=== PATIENT | male | born 1975 | race Hispanic/Latino ===

== ENCOUNTER 2019-04-02 22:49 | Emergency (ER) | payer SELFPAY ==
[2019-04-02 23:19] LABS: Absolute Lymphocytes (CBC) 2.9 K/uL (0.7-4.9); Basophils % 0.4 % (0-1.3); Hematocrit 39.2 % (39.6-49.0); MPV 8.4 fL (7.6-11.3); RBC Red Blood Cell Count 4.44 M/uL (4.33-5.43)
[2019-04-02] MEDS ORDERED: KETOROLAC 30 MG/ML INJ ONE (23:21)
[2019-04-02] MEDS ORDERED: NA CHLORIDE 0.9% 1,000 ML ONE (23:22)
[2019-04-02 23:25] LABS: Urine Blood TRACE (NEG); Urine Glucose TRACE (NEG); Urine Protein NEGATIVE (NEG); Urine Specific Gravity 1.015 (1.005-1.030); Urine pH 8.5 (5.0-7.0)
[2019-04-02 23:36] LABS: Potassium 3.2 mmol/L (3.5-5.1)
[2019-04-03] MEDS ORDERED: MORPHINE 4 MG/ML SYR ONE (00:05)
--- NOTE | 2019-04-03 02:09 | ER ---
Nurse's Notes [facility] Name: Sohan Joy Age: 43 yrs Sex: Male : 1975 Arrival Date: 04/02/2019 Time: 22:50 Bed 14 Private MD: Diagnosis: Flank Pain Presentation: 04/02 22:52 Presenting complaint: EMS states: PT was having dinner at 2145, stood up and had sudden jb4 left lower back pain, described it as a pressure that makes his left leg feel weak. Transition of care: patient was not received from another setting of care. Onset of symptoms was April 02, 2019. Risk Assessment: Do you want to hurt yourself or someone else? Patient reports no desire to harm self or others. Initial Sepsis Screen: Does the patient meet any 2 criteria? RR > 20 per min. Yes Does the patient have a suspected source of infection? No. Patient's initial sepsis screen is negative. Care prior to arrival: None. 22:52 Method Of Arrival: EMS: [facility] jb4 22:52 Acuity: CARLOS 3 jb4 Historical: - Allergies: 22:54 No Known Allergies; jb4 - Home Meds: 22:54 None [Active]; jb4 - PMHx: 22:54 Kidney stones; jb4 - PSHx: 22:54 None; jb4 - Immunization history:: Adult Immunizations unknown. - Social history:: Smoking status: Patient/guardian denies using tobacco, Patient uses alcohol, occasionally. - Ebola Screening: : No symptoms or risks identified at this time. Screenin:02 Abuse screen: Denies threats or abuse. Nutritional screening: No deficits noted. jb4 Tuberculosis screening: No symptoms or risk factors identified. Fall Risk IV access (20 points). Total Moore Fall Scale indicates No Risk (0-24 pts). Assessment: 22:59 General: Appears in no apparent distress. uncomfortable, Behavior is calm, cooperative, jb4 appropriate for age. Pain: Complains of pain in left low back Pain radiates to abdomen Pain currently is 10 out of 10 on a pain scale. Quality of pain is described as pressure. Neuro: Level of Consciousness is awake, alert, obeys commands, Oriented to person, place, time, situation. Cardiovascular: Patient's skin is warm and dry. Respiratory: Airway is patent Respiratory effort is even, unlabored, Respiratory pattern is regular, symmetrical. GI: No signs and/or symptoms were reported involving the gastrointestinal system. : No signs and/or symptoms were reported regarding the genitourinary system. EENT: No signs and/or symptoms were reported regarding the EENT system. Derm: Skin is intact, Skin is dry, Skin is normal, Skin temperature is warm. Musculoskeletal: Circulation, motion, and sensation intact. Range of motion: intact in all extremities. 04/03 00:25 Reassessment: Patient appears in no apparent distress at this time. Patient and/or jb4 family updated on plan of care and expected duration. Pain level reassessed. Patient is alert, oriented x 3, equal unlabored respirations, skin warm/dry/pink. Pt reports decreased pain level after having Morphine and appears more comfortable Patient states feeling better. 01:30 Reassessment: Patient appears in no apparent distress at this time. Patient and/or jb4 family updated on plan of care and expected duration. Pain level reassessed. Patient is alert, oriented x 3, equal unlabored respirations, skin warm/dry/pink. Patient states feeling better. 02:19 Reassessment: Patient appears in no apparent distress at this time. Patient and/or jb4 family updated on plan of care and expected duration. Pain level reassessed. Patient is alert, oriented x 3, equal unlabored respirations, skin warm/dry/pink. PT ambulated out of ED with family, steady gait, verbalized feeling better, verbalized understanding of d/c and follow up instructions, denies questions or concerns. Vital Signs: 04/02 22:54 BP 133 / 75; Pulse 71; Resp 39; Temp 98.4(O); Pulse Ox 97% ; lt1 22:54 Weight 90.72 kg; Height 5 ft. 11 in. (180.34 cm) (R); jb4 04/03 00:15 BP 122 / 69; Pulse 66; Resp 20; Pulse Ox 97% on R/A; 4 01:30 BP 120 / 76; Pulse 64; Resp 16; Pulse Ox 97% on R/A; jb4 02:15 BP 121 / 71; Pulse 67; Resp 16; Pulse Ox 100% on R/A; jb4 04/02 22:54 Body Mass Index 27.89 (90.72 kg, 180.34 cm) jb4 ED Course: 04/02 22:50 Patient arrived in ED. jb4 22:50 Isabelle Cowart FNP-C [facility]. kb 22:50 Robbie Francis MD is Attending Physician. kb 22:54 Triage completed. jb4 22:54 Arm band placed on right wrist. jb4 23:02 Bed in low position. Call light in reach. Side rails up X 1. Pulse ox on. NIBP on. jb4 23:02 Initial lab(s) drawn, by me, sent to lab. Inserted saline lock: 20 gauge in right lt1 antecubital area, using aseptic technique. 23:20 Marlon Akins, RN is Primary Nurse. rv 23:26 Bean Spencer, CURRY is Primary Nurse. jb4 04/03 00:41 CT completed. Patient tolerated procedure well. Patient moved to CT via stretcher. Patient moved back from CT. 00:43 CT Stone Protocol In Process Unspecified. EDMS 02:21 No provider procedures requiring assistance completed. IV discontinued, intact, jb4 bleeding controlled, No redness/swelling at site. Pressure dressing applied. Administered Medications: 04/02 23:09 Not Given (Patient Refused): Zofran 4 mg IVP once; over 2 minutes jb4 23:09 Drug: NS 0.9% 1000 ml Route: IV; Rate: 1000 ml; Site: right antecubital; jb4 04/03 00:00 Follow up: Response: No adverse reaction; IV Status: Completed infusion; IV Intake: jb4 1000ml 04/02 23:09 Drug: TORadol - Ketorolac 15 mg Route: IVP; Site: right antecubital; jb4 23:45 Follow up: Response: No adverse reaction; Pain is unchanged, physician notified jb4 23:54 Drug: morphine 4 mg Route: IVP; Site: right antecubital; jb4 04/03 00:28 Follow up: Response: No adverse reaction; Pain is decreased jb4 Intake: 00:00 IV: 1000ml; Total: 1000ml. jb4 Outcome: 02:08 Discharge ordered by . kb 02:21 Discharged to home ambulatory, with family. jb4 02:21 Condition: stable 02:21 Discharge instructions given to patient, family, Instructed on discharge instructions, follow up and referral plans. medication usage, Demonstrated understanding of instructions, follow-up care, medications, Prescriptions given X 2. 02:22 Patient left the ED. jb4 Signatures: Dispatcher [employer] EDIsabelle Bhatt, JOHN CHAVEZ-Bryon Purcell James RN RN jb4 Marlon Akins RN RN [facility], [facility]
--- NOTE | 2019-04-03 02:10 | EDPHYS ---
Physician Documentation [facility] Name: Sohan Joy Age: 43 yrs Sex: Male : 1975 Arrival Date: 04/02/2019 Time: 22:50 Bed 14 Private MD: ED Physician Robbie Francis HPI: 04/02 23:44 This 43 yrs old Male presents to ER via EMS with complaints of flank pain. kb 23:44 The patient complains of pain in the right flank. The pain does not radiate. Onset: The kb symptoms/episode began/occurred just prior to arrival. Modifying factors: The symptoms are alleviated by nothing. the symptoms are aggravated by nothing. Associated signs and symptoms: The patient has no apparent associated signs or symptoms. Severity of pain: At its worst the pain was severe in the emergency department the pain is unchanged. The patient has experienced similar episodes in the past, a few times. The patient has not recently seen a physician. Pt reports sudden onset of right flank pain. Feels the same as kidney stones he had in the past. Historical: - Allergies: 22:54 No Known Allergies; jb4 - Home Meds: 22:54 None [Active]; jb4 - PMHx: 22:54 Kidney stones; jb4 - PSHx: 22:54 None; jb4 - Immunization history:: Adult Immunizations unknown. - Social history:: Smoking status: Patient/guardian denies using tobacco, Patient uses alcohol, occasionally. - Ebola Screening: : No symptoms or risks identified at this time. ROS: 23:44 Constitutional: Negative for fever, chills, and weight loss, ENT: Negative for injury, kb pain, and discharge, Neck: Negative for injury, pain, and swelling, Cardiovascular: Negative for chest pain, palpitations, and edema, Respiratory: Negative for shortness of breath, cough, wheezing, and pleuritic chest pain, Abdomen/GI: Negative for abdominal pain, nausea, vomiting, diarrhea, and constipation, MS/Extremity: Negative for injury and deformity, Skin: Negative for injury, rash, and discoloration, Neuro: Negative for headache, weakness, numbness, tingling, and seizure. 23:44 Back: Positive for flank pain, on the right. Exam: 23:44 Constitutional: This is a well developed, well nourished patient who is awake, alert, kb and in no acute distress. Head/Face: Normocephalic, atraumatic. ENT: Nares patent. No nasal discharge, no septal abnormalities noted. Tympanic membranes are normal and external auditory canals are clear. Oropharynx with no redness, swelling, or masses, exudates, or evidence of obstruction, uvula midline. Mucous membranes moist. Neck: Trachea midline, no thyromegaly or masses palpated, and no cervical lymphadenopathy. Supple, full range of motion without nuchal rigidity, or vertebral point tenderness. No Meningismus. Chest/axilla: Normal chest wall appearance and motion. Nontender with no deformity. No lesions are appreciated. Cardiovascular: Regular rate and rhythm with a normal S1 and S2. No gallops, murmurs, or rubs. Normal PMI, no JVD. No pulse deficits. Respiratory: Lungs have equal breath sounds bilaterally, clear to auscultation and percussion. No rales, rhonchi or wheezes noted. No increased work of breathing, no retractions or nasal flaring. Abdomen/GI: Soft, non-tender, with normal bowel sounds. No distension or tympany. No guarding or rebound. No evidence of tenderness throughout. Skin: Warm, dry with normal turgor. Normal color with no rashes, no lesions, and no evidence of cellulitis. MS/ Extremity: Pulses equal, no cyanosis. Neurovascular intact. Full, normal range of motion. Neuro: Awake and alert, GCS 15, oriented to person, place, time, and situation. Cranial nerves II-XII grossly intact. Motor strength 5/5 in all extremities. Sensory grossly intact. Cerebellar exam normal. Normal gait. 23:44 Back: CVA tenderness, that is moderate, is noted on the right. Vital Signs: 22:54 BP 133 / 75; Pulse 71; Resp 39; Temp 98.4(O); Pulse Ox 97% ; lt1 22:54 Weight 90.72 kg; Height 5 ft. 11 in. (180.34 cm) (R); jb4 04/03 00:15 BP 122 / 69; Pulse 66; Resp 20; Pulse Ox 97% on R/A; jb4 01:30 BP 120 / 76; Pulse 64; Resp 16; Pulse Ox 97% on R/A; jb4 02:15 BP 121 / 71; Pulse 67; Resp 16; Pulse Ox 100% on R/A; jb4 04/02 22:54 Body Mass Index 27.89 (90.72 kg, 180.34 cm) jb4 MDM: 04/02 22:50 Patient medically screened. kb 23:37 Data reviewed: vital signs, nurses notes. Data interpreted: Pulse oximetry: on room air kb is 97 %. Interpretation: normal. 04/03 02:07 Counseling: I had a detailed discussion with the patient and/or guardian regarding: the kb historical points, exam findings, and any diagnostic results supporting the discharge/admit diagnosis, lab results, radiology results, the need for outpatient follow up, a family practitioner, to return to the emergency department if symptoms worsen or persist or if there are any questions or concerns that arise at home. Response to treatment: the patient's symptoms have resolved after treatment. 04/02 22:52 Order name: CBC with Diff; Complete Time: 23:24 kb 04/02 22:52 Order name: Basic Metabolic Panel; Complete Time: 23:37 kb 04/02 22:52 Order name: CT Stone Protocol kb 04/02 23:22 Order name: Urine Dipstick--Ancillary (enter results); Complete Time: 23:27 cm6 04/02 22:52 Order name: IV Start; Complete Time: 23:03 kb 04/02 22:52 Order name: Urine Dipstick-Ancillary (obtain specimen); Complete Time: 23:26 kb Administered Medications: 04/02 23:09 Not Given (Patient Refused): Zofran 4 mg IVP once; over 2 minutes jb4 23:09 Drug: NS 0.9% 1000 ml Route: IV; Rate: 1000 ml; Site: right antecubital; jb4 04/03 00:00 Follow up: Response: No adverse reaction; IV Status: Completed infusion; IV Intake: jb4 1000ml 04/02 23:09 Drug: TORadol - Ketorolac 15 mg Route: IVP; Site: right antecubital; jb4 23:45 Follow up: Response: No adverse reaction; Pain is unchanged, physician notified jb4 23:54 Drug: morphine 4 mg Route: IVP; Site: right antecubital; jb4 04/03 00:28 Follow up: Response: No adverse reaction; Pain is decreased jb4 Disposition: 07:20 Co-signature as Attending Physician, Robbie Francis MD I agree with the assessment and perry plan of care. Disposition: 04/03/19 02:08 Discharged to Home. Impression: Flank Pain. - Condition is Stable. - Discharge Instructions: Flank Pain, [id number]. - Prescriptions for Zofran 4 mg Oral Tablet - take 1 tablet by ORAL route every 6 hours As needed; 20 tablet. Diclofenac Sodium 75 mg Oral Tablet, Delayed Release (E.C.) - take 1 tablet by ORAL route 2 times per day As needed; 30 tablet. - Medication Reconciliation Form, Thank You Letter, Antibiotic Education, Prescription Opioid Use form. - Follow up: Emergency Department; When: As needed; Reason: Worsening of condition. Follow up: Private Physician; When: 2 - 3 days; Reason: Recheck today's complaints, Continuance of care, Re-evaluation by your physician. Signatures: Dispatcher [employer] EDMS Isabelle Cowart, CAFETERIA DIRECTOR-C CAFETERIA DIRECTOR-Robbie Nuñez MD MD cha Bryson, James, RN RN jb4 Corrections: (The following items were deleted from the chart) 02:22 02:08 04/03/2019 02:08 Discharged to Home. Impression: Flank Pain. Condition is Stable. jb4 Forms are Medication Reconciliation Form, Thank You Letter, Antibiotic Education, Prescription Opioid Use. Follow up: Emergency Department; When: As needed; Reason: Worsening of condition. Follow up: Private Physician; When: 2 - 3 days; Reason: Recheck today's complaints, Continuance of care, Re-evaluation by your physician. kb
--- NOTE | 2019-04-03 09:53 | RAD REPORT ---
EXAM DESCRIPTION: CT - Stone Protocol - 04/03/2019 5:54 am CLINICAL HISTORY: The patient is 43 years old and is Male; FLANK PAIN TECHNIQUE: Axial computed tomography images of the abdomen and pelvis without intravenous contrast. Sagittal and coronal reformatted images were created and reviewed. This CT exam was performed usi ng one or more of the following dose reduction techniques: automated exposure control, adjustment o f the mA and/or kV according to patient size, and/or use of iterative reconstruction technique. COMPARISON: No relevant prior studies available. FINDINGS: LUNG BASES: Unremarkable. No mass. No consolidation. ABDOMEN: LIVER: Homogeneous without focal mass. GALLBLADDER AND BILE DUCTS: The gallbladder is contracted. Suggestion of punctate calcified gall stone is present. PANCREAS: Unremarkable. No ductal dilation. SPLEEN: Unremarkable. ADRENALS: Unremarkable. No mass. KIDNEYS AND URETERS: No obstructing renal or ureteral calculus is seen. There is no hydronephros is hydroureter of either kidney. STOMACH AND BOWEL: The stomach is significantly distended with food contents. The small bowel is normal in caliber. A moderate amount stool is present throughout the colon. There is no mucosal thic kening or evidence of bowel obstruction. PELVIS: APPENDIX: The appendix is normal in caliber without surrounding inflammation. BLADDER: The bladder is well distended. A calcification is noted at the dome of the bladder. No stones. REPRODUCTIVE: Unremarkable as visualized. ABDOMEN and PELVIS: INTRAPERITONEAL SPACE: Unremarkable. No free air. No significant fluid collection. BONES/JOINTS: No acute fracture. SOFT TISSUES: A small fat-containing umbilical hernia is present. VASCULATURE: Unremarkable. No abdominal aortic aneurysm. LYMPH NODES: Unremarkable. No enlarged lymph nodes. IMPRESSION: No acute findings on this noncontrasted CT of the abdomen and pelvis to explain the harjit ent's symptoms. Electronically signed by: Kierra Le MD 04/03/2019 1:37 AM CDT Due to temporary technical issues with the PACS/Fluency reporting system, reports are being signed by the in house radiologist as a courtesy to ensure prompt reporting. The interpreting radiologist is f ully responsible for the content of the report.
== END 2019-04-03 02:22 | disposition home or self-care (01) ==
LOC: ER 22:49
DX: R10.9 Unspecified abdominal pain (principal)
CPT/HCPCS: 36415; 74176; 76377; 80048; 81003; 85025; 96361; 96374; 96375; 99285; J7030